=== PATIENT | male | born 1970 | race Two or more races ===

== ENCOUNTER 2016-05-28 02:00 | Emergency (ER) | payer OTHER ==
[~2016-05-28] VITALS: Ht 177.8 cm; Wt 73.0 kg
[~2016-05-28 02:00] MED LIST: CODE118S PO; DOCU-144 PO; METF500T4 PO; TRAM50TA2 PO
[2016-05-28 02:03] VITALS: Ht 177.8 cm; Wt 73.0 kg
[2016-05-28] MEDS ORDERED: KETOROLAC 60 MG INJ IM STA (04:44)
[2016-05-28] MEDS ORDERED: NAPR-260 PO (04:46)
--- NOTE | 2016-06-02 23:44 | ERD ---
ER Documentation Chief Complaint Date/Time DATE: 06/02/16 TIME: 23:40 Chief Complaint back pain, right shoulder pain, right arm pain x 6 months HPI This patient is a 46 yo male with history of DMII presenting to the ED with complaints of R scapular pain radiating down the R arm x 6 months. He has taken no medications at home for symptom relief. He denies loss of function of his arm or numbness or tingling. he denies all other symptoms currently. ROS All systems reviewed and are negative except as per history of present illness. Medications Home Meds Active Scripts Naproxen* (Naprosyn*) 500 Mg Tablet, 500 MG PO BID Y for PAIN AND/OR INFLAMMATION, #30 TAB Prov:IFEOMA ALFONSO PA-C 05/28/16 Tramadol HCl (Tramadol HCl) 50 Mg Tablet, 50 MG PO Q4 Y for PAIN, #20 TAB Prov:RAYRAY ESPINOSA PA-C 10/26/15 Docusate Sodium* (Colace*) 100 Mg Capsule, 100 MG PO TID, #60 CAP Prov:RAYRAY ESPINOSA PA-C 10/26/15 Metformin* (Glucophage*) 500 Mg Tab, 500 MG PO DAILY, #30 TAB Prov:YUNI PALMA PA-C 12/26/14 Promethazine w/Codeine* (Phenergan w/Codeine* Syrup) 473 Ml Syrup, 5 ML PO Q6H Y for COUGH for 10 Days, ML Prov:YUNI PALMA PA-C 12/26/14 Allergies Allergies: Coded Allergies: No Known Allergy (Unverified , 09/18/12) PMhx/Soc Medical and Surgical Hx: pt denies Surgical Hx History of Surgery: No Anesthesia Reaction: No Hx Neurological Disorder: No Hx Respiratory Disorders: No Hx Cardiac Disorders: No Hx Psychiatric Problems: No Hx Miscellaneous Medical Probl: Yes (DMII) Hx Alcohol Use: No Hx Substance Use: No Hx Tobacco Use: No Smoking Status: Never smoker FmHx non contributory for chief complaint. Physical Exam Vitals temp 97.7F pulse 71 BP 137/99 resp 20 O2 sat 100% on RA. Physical Exam Const: Pt is resting comfortably in no acute distress Head: Atraumatic Eyes: Normal Conjunctiva ENT: Normal External Ears, Nose and Mouth. Neck: Full range of motion..~ No meningismus. Resp: Clear to auscultation bilaterally Cardio: Regular rate and rhythm, no murmurs Abd: Soft, non tender, non distended. Normal bowel sounds Skin: No petechiae or rashes Back: No midline or flank tenderness Ext: Pt has mild TTP of the R shoulder, with slight limited ROM secondary to pain. Neur: Awake and alert Psych: Normal Mood and Affect Results 24 hrs Current Medications Medications (Trade) Dose Ordered Sig/Panchito Route PRN Reason Start Time Stop Time Status Last Admin Dose Admin Ketorolac Tromethamine (Toradol) 60 mg ONCE STAT IM 05/28/16 04:44 05/28/16 04:46 DC 05/28/16 04:57 Procedures/MDM 46 yo male presents secondary to complaints of chronic R shoulder pain x 6 months. ON physical examination the pt has mild TTP of the R shoulder and slight limited ROM secondary to pain. I suspect shoulder contusion/chronic R shoulder pain. IM toradol in the department provided relief for the patient. I discussed imaging with the patient and he stated he would like to pursue this outpatient. I provided information for orthopedic follow up. The patient is stable for discharge and I doubt any radiculopathy, fracture, or other emergent pathology at this time. Departure Diagnosis: Primary Impression: Shoulder pain, right Condition: Fair Patient Instructions: Shoulder Pain (Uncertain Cause) Referrals: [facility] YOU HAVE RECEIVED A MEDICAL SCREENING EXAM AND THE RESULTS INDICATE THAT YOU DO NOT HAVE A CONDITION THAT REQUIRES URGENT TREATMENT IN THE EMERGENCY DEPARTMENT. FURTHER EVALUATION AND TREATMENT OF YOUR CONDITION CAN WAIT UNTIL YOU ARE SEEN IN YOUR DOCTORS OFFICE WITHIN THE NEXT 1-2 DAYS. IT IS YOUR RESPONSIBILITY TO MAKE AN APPOINTMENT FOR FOLOW-UP CARE. IF YOU HAVE A PRIMARY DOCTOR --you should call your primary doctor and schedule an appointment IF YOU DO NOT HAVE A PRIMARY DOCTOR YOU CAN CALL OUR PHYSICIAN REFERRAL HOTLINE AT IF YOU CAN NOT AFFORD TO SEE A PHYSICIAN YOU CAN CHOSE FROM THE FOLLOWING [facility] [id number] [facility] [address] [facility] [email or web address] [address] [facility] [address] [facility] [address] [facility]. [facility] [address] [facility] Hours: Mon-Fri 9:00 AM - 5:00 PM Additional Instructions: Follow-up with your primary care physician within 1 week. Return to the emergency department immediately should you have any new or worsening symptoms, uncontrolled fevers, or other unexplained symptoms. Take all medications as directed. IFEOMA ALFONSO PA-C Jun 02, 2016 23:44
== END 2016-05-28 05:14 | disposition home or self-care (01) ==
LOC: FTE 02:00
DX: M25.511 Pain in right shoulder (principal); E11.9 Type 2 diabetes mellitus without complications; Z79.84 Long term (current) use of oral hypoglycemic drugs
CPT/HCPCS: 96372; J1885